=== PATIENT | male | born 2005 | race African-American/Black ===

== ENCOUNTER 2025-07-19 19:47 | Observation (INO) | payer BC, SELFPAY ==
[2025-07-19] VITALS (10 sets, daily range): BP systolic 135–171; BP diastolic 82–115; PULSE 65–97; RESP 14–18; TEMP 36.8; O2SAT 96–99
--- NOTE | 2025-07-19 19:57 | ECG_ITS ---
Test Date: 2025-07-19 20:06:43 Measurements Intervals [place] Rate: 81 P: 37 GA: 161 QRS: 14 QRSD: 84 T: 18 QT: 342 QTc: 397 Interpretive Statements SINUS RHYTHM DELAYED PRECORDIAL R/S TRANSITION BORDERLINE ECG No previous ECG available for comparison Electronically Signed On 07-20-2025 06:04:04 PRE ASSEMBLY WIRER by Quinn Bowers D.O.
[2025-07-19 20:17] LABS: Hematocrit 43.3 % (42.0-52.0); Hemoglobin 14.4 g/dL (14.0-18.0); Immature Granulocyte Percent A 0.3 % (0-0.5); Lymphocytes Absolute Auto 2.61 K/mm3 (0.9-3.2); Mean Corpuscular HGB Conc 33.3 g/dl (32-36); Mean Corpuscular Hemoglobin 30.8 pg (26-34); Mean Corpuscular Volume 92.5 fl (80-100); Nucleated Red Blood Cells Absolute Auto 0.000 K/mm3 (0.0-0.012); Nucleated Red Blood Cells Perc 0.0 % (0.0-0.2); Platelet Count Result 367 k/mm3 (150-375); Red Blood Count 4.68 M/mm3 (4.6-6.20); White Blood Count 10.3 K/mm3 (4.5-10.0)
[2025-07-19 20:40] LABS: Acetaminophen < 10 ug/mL (10-30); Salicylate < 1.0 mg/dL (2-20)
--- NOTE | 2025-07-19 20:50 | ED.OVERDOSE ---
HPI - Overdose General Chief Complaint: Overdose <Shannan Kraft MD - Last Filed: 07/20/25 00:41> Stated Complaint: LITHIUM OVERDOSE <Shannan Kraft MD - Last Filed: 07/20/25 00:41> Time Seen by Provider: 07/19/25 19:54 <Shannan Kraft MD - Last Filed: 07/20/25 00:41> Source: patient and RN notes reviewed <Shannan Kraft MD - Last Filed: 07/20/25 00:41> Mode of arrival: EMS <Shannan Kraft MD - Last Filed: 07/20/25 00:41> Limitations: no limitations <Shannan Kraft MD - Last Filed: 07/20/25 00:41> History of Present Illness HPI Narrative: Patient presents after report of an intentional overdose of [place]. States he took 33 pills of his 450mg [place] dose at approximately 7:10pm. Patient denies any suicidal ideation and states that he did not want to hurt himself , only that he took this because he was angry towards his parents and aunt. Patient denies any co ingestants. He denies taking any other medications at baseline although he said that due to his history of bipolar disorder and schizophrenia he had been receiving Invega long-acting injections although does not recall when he last had 1 but that his mother would know this information. Patient states that he did not eat, he only had milk with his lithium. Patient says that the lithium is a somewhat new prescription and that he has only been on it for a year or less. It is prescribed by Romana Veloz on the bottle ; he states he doesn't know who this is exactly because he has seen a lot of doctors, doesn't know who is primary or mental health doctors are. He has attempted overdose before, when he was 12yo and in a juvenile care home facility and on ADHD medication. He says he did it at that time because they thought I was playing. Denies previous suicide attempts though. He reports that he vomited when he got here but does not feel nauseated now. Does have some low abdominal pain. <Shannan Kraft MD - Last Filed: 07/20/25 00:41> Related Data Allergies/Adverse Reactions: Allergies Allergy/AdvReac Type Severity Reaction Status Date / Time No Known Allergies Allergy Unverified 11/27/13 20:10 <Shannan Kraft MD - Last Filed: 07/20/25 00:41> PMFSH Past Medical History Medical History: Medical History ADHD Schizophrenia Bipolar disorder <Shannan Kraft MD - Last Filed: 07/20/25 00:41> Social History Social History: Social History Substance use type: does not use Other substance usage details: denies but UDS positive for cannabinoids Living arrangements: with family <Shannan Kraft MD - Last Filed: 07/20/25 00:41> Exam Narrative: GENERAL: Well-appearing, well-nourished, and in no acute distress. HEAD: Normocephalic, atraumatic. EYES: Non injected, non icteric ENT: Nares clear, no rhinorrhea or epistaxis. Gross auditory acuity intact. NECK: Supple. No meningismus. CHEST: Speaking in full sentences. No respiratory distress. HEART: Regular rate and rhythm. . ABDOMEN: Soft, nondistended. No rigidity or guarding. Not peritoneal EXTREMITIES: Normal range of motion. SKIN: Warm, dry, no rash. NEURO: No focal deficits. Alert and oriented. Answering questions. Following commands. Normal speech without aphasia or dysarthria. PSYCH: Congruent mood and affect. Appropriate eye contact as well as speech (volume, quantity). Does not appear to be responding to internal stimuli. <Shannan Kraft MD - Last Filed: 07/20/25 00:41> Course Course Emergency Course: 22:00 -patient signed out to me Dr. Kraft at shift change pending lithium level it 0115. Service Desk Agent has been consulted. Poison Control has also been contacted. Overall plan is for a repeat lithium level at 1:15 a.m. and every 4 hours, the lithium level at 1:15 a.m. is less than 4 can admit patient. Nephrology has also been contacted and are unable to get the patient dialysis tonight if the lithium level is greater than 4 and 1:15 patient will need to be transferred. 01:45 -lithium level is 1.3. I spoke with the hospitalist on-call who has accepted the patient for admission. <Ino Padilla DO - Last Filed: 07/20/25 02:04> Vital Signs Vital signs: Vital Signs Pulse Rate 94 07/19/25 19:51 Respiratory Rate 14 07/19/25 19:51 Blood Pressure 168/108 H 07/19/25 19:51 Pulse Oximetry 98 07/19/25 19:51 Oxygen Delivery Room Air 07/19/25 19:51 Temperature 98.2 F 07/19/25 21:03 Pulse Rate 94 07/19/25 19:51 Respiratory Rate 14 07/19/25 19:51 Blood Pressure 168/108 H 07/19/25 19:51 Pulse Oximetry 98 07/19/25 19:51 Oxygen Delivery Room Air 07/19/25 19:51 <Shannan Kraft MD - Last Filed: 07/20/25 00:41> Vital Signs Pulse Rate 94 07/19/25 19:51 Respiratory Rate 14 07/19/25 19:51 Blood Pressure 168/108 H 07/19/25 19:51 Pulse Oximetry 98 07/19/25 19:51 Oxygen Delivery Room Air 07/19/25 19:51 Temperature 98.2 F 07/19/25 21:03 Pulse Rate 94 07/19/25 19:51 Respiratory Rate 14 07/19/25 19:51 Blood Pressure 168/108 H 07/19/25 19:51 Pulse Oximetry 98 07/19/25 19:51 Oxygen Delivery Room Air 07/19/25 19:51 <Ino Padilla DO - Last Filed: 07/20/25 02:04> MDM MDM Narrative Medical decision making narrative: Patient presents after reported intentional overdose of 33 tablets of 450mg [place] at 7:10pm. Denies SI; states did it out of anger towards family members. In the emergency department he is afebrile (initially not entered but 98.2) with vital signs notable for hypertension. It appears Romana Veloz MD is a psychiatrist. Acetaminophen salicylate negative. RN spoke with poison control who noted should start seeing symptoms 3-7 hours and may need hemodialysis, watch for hyperkalemia and hypercalcemia and get repeat Li level q4 hour after initial. No role for charcoal, etc. Very mild leukocytosis, barely. UA with trace leukocyte esterase but otherwise without signs of infection. Mild hyponatremia, no prior for comparison. UDS positive for cannabinoids. Initial [place] lab is not abnormal. Discussed with oil well services field supervisor Dr Sandoval who concurs with the IMU-status but in the ICU overflow space for close monitoring 1:1 / 1:2 sitting. Also recommends nephrology be notified in case patient requires dialysis and to confirm could be performed overnight. Discussed with admissions representative hospitalist Yady PICHARDO who accepts admission pending discussion with nephrology. Discussed with milk and cream grader who does note that unable to have dialysis catheter placed overnight should patient require dialysis. Recommends waiting until 1:15am [place] level. If <4, reasonable to admit and will await morning (5:15 and 9:15am ) lab draws. If repeat [place] level overnight is >4, patient will require transfer for dialysis. Advised hydrating patient so in addition to the first Liter bolus ordered, 2 additional boluses (total 3000mL) NS ordered. director call center sales overnight ED physician aware to follow up on lab and either place admit orders versus transfer patient. <Shannan Kraft MD - Last Filed: 07/20/25 00:41> Differential Diagnosis Differential Diagnosis: intentional ingestion; overdose; lithium toxicity; suicide attempt; behavioral outburst/impulsivity; psychiatic decline; malingering <Shannan Kraft MD - Last Filed: 07/20/25 00:41> Lab Data MDM Lab Attestation statement: I personally reviewed the patient's lab results. <Shannan Kraft MD - Last Filed: 07/20/25 00:41> Result diagrams: 07/19/25 20:10 07/19/25 21:13 <Shannan Kraft MD - Last Filed: 07/20/25 00:41> Labs: Lab Results 07/19/25 07/19/25 07/20/25 Range/Units 20:10 21:13 01:13 WBC 10.3 H (4.5-10.0) K/mm3 RBC 4.68 (4.6-6.20) M/mm3 Hgb 14.4 (14.0-18.0) g/dL Hct 43.3 (42.0-52.0) % MCV 92.5 (80-100) fl MCH 30.8 (26-34) pg MCHC 33.3 (32-36) g/dl RDW 13.9 (11.5-14.5) % Plt Count 367 (150-375) k/mm3 MPV 9.3 (7.4-10.4) fl Immature Gran % (Auto) 0.3 (0-0.5) % Neut % (Auto) 65.7 (45.5-73.1) % Lymph % (Auto) 25.3 (18.3-44.2) % [place] % (Auto) 6.5 (2.6-8.5) % Eos % (Auto) 1.8 (0-4.4) % Baso % (Auto) 0.4 (0.2-1.2) % Lymph # (Auto) 2.61 (0.9-3.2) K/mm3 [place] # (Auto) 0.7 H (0.1-0.6) K/mm3 Eos # (Auto) 0.2 (0-0.3) K/mm3 Baso # (Auto) 0.0 (0.0-0.1) K/mm3 Abs Immat Gran (auto) 0.03 (0.00-0.031) K/mm3 Absolute Neuts (auto) 6.8 H (1.3-6.7) K/mm3 Absolute Nucleated RBC 0.000 (0.0-0.012) K/mm3 Nucleated RBC % 0.0 (0.0-0.2) % PT 15.3 H (11.1-14.7) Seconds INR 1.2 APTT 33.4 (22.3-36.8) Seconds Sodium 135 L (137-145) mmol/L Potassium 3.8 (3.4-5.0) mmol/L Chloride 104 (98-107) mmol/L Carbon Dioxide 25 (22-30) mmol/L Anion Gap 6 (4-12) mmol/L BUN 9 (9-20) mg/dL Creatinine 0.81 (0.7-1.3) mg/dL Estim Creat Clear Calc 176 ml/min Estimated GFR > 60 (59 - ) Glucose 84 (65-110) mg/dL Calcium 9.6 (8.4-10.2) mg/dL Total Bilirubin 0.4 (0.2-1.3) mg/dL AST 33 (17-59) U/L ALT 15 (6-50) U/L Alkaline Phosphatase 87 (38-126) U/L Total Protein 7.9 (6.3-8.2) g/dL Albumin 4.6 (3.5-5.1) g/dL TSH 2.840 (0.465-4.680) uIU/mL Urine Color Yellow (Yellow) Urine Appearance Clear (Clear) Urine pH 8.0 (5.0-9.0) Ur Specific [place] 1.012 (1.001-1.035) Urine Protein Negative (Negative) mg/dL Urine Glucose (UA) Negative (Negative) mg/dL Urine Ketones Negative (Negative) mg/dL Ur Blood (Man) Negative (Negative) Urine Nitrate Negative (Negative) Urine Bilirubin Negative (Negative) Urine Urobilinogen 1.0 (<2.0) mg/dL Leukocyte Esterase Rfl Trace H (Negative) ALEXANDER/UL Urine RBC 0-2 (0-2) /hpf Urine WBC 0-5 (0-3) /hpf Ur Squamous Epith Cells None seen (Few) /hpf Urine Bacteria None seen /hpf Urine Casts 0-2 Salicylates < 1.0 L (2-20) mg/dL Urine Opiates Screen Negative (Negative) Urine Methadone Screen Negative (Negative) Acetaminophen < 10 L (10-30) ug/mL Ur Barbiturates Screen Negative (Negative) Ur Phencyclidine Scrn Negative (Negative) Ur Amphetamine Screen Negative (Negative) U Benzodiazepines Scrn Negative (Negative) [place] Cancelled 0.7 1.3 H* Urine Cocaine Screen Negative (Negative) U Cannabinoids Screen Positive A (Negative) Ethyl Alcohol < 10 (<10) mg/dL <Shannan Kraft MD - Last Filed: 07/20/25 00:41> Lab Results 07/19/25 07/19/25 07/20/25 Range/Units 20:10 21:13 01:13 WBC 10.3 H (4.5-10.0) K/mm3 RBC 4.68 (4.6-6.20) M/mm3 Hgb 14.4 (14.0-18.0) g/dL Hct 43.3 (42.0-52.0) % MCV 92.5 (80-100) fl MCH 30.8 (26-34) pg MCHC 33.3 (32-36) g/dl RDW 13.9 (11.5-14.5) % Plt Count 367 (150-375) k/mm3 MPV 9.3 (7.4-10.4) fl Immature Gran % (Auto) 0.3 (0-0.5) % Neut % (Auto) 65.7 (45.5-73.1) % Lymph % (Auto) 25.3 (18.3-44.2) % [place] % (Auto) 6.5 (2.6-8.5) % Eos % (Auto) 1.8 (0-4.4) % Baso % (Auto) 0.4 (0.2-1.2) % Lymph # (Auto) 2.61 (0.9-3.2) K/mm3 [place] # (Auto) 0.7 H (0.1-0.6) K/mm3 Eos # (Auto) 0.2 (0-0.3) K/mm3 Baso # (Auto) 0.0 (0.0-0.1) K/mm3 Abs Immat Gran (auto) 0.03 (0.00-0.031) K/mm3 Absolute Neuts (auto) 6.8 H (1.3-6.7) K/mm3 Absolute Nucleated RBC 0.000 (0.0-0.012) K/mm3 Nucleated RBC % 0.0 (0.0-0.2) % PT 15.3 H (11.1-14.7) Seconds INR 1.2 APTT 33.4 (22.3-36.8) Seconds Sodium 135 L (137-145) mmol/L Potassium 3.8 (3.4-5.0) mmol/L Chloride 104 (98-107) mmol/L Carbon Dioxide 25 (22-30) mmol/L Anion Gap 6 (4-12) mmol/L BUN 9 (9-20) mg/dL Creatinine 0.81 (0.7-1.3) mg/dL Estim Creat Clear Calc 176 ml/min Estimated GFR > 60 (59 - ) Glucose 84 (65-110) mg/dL Calcium 9.6 (8.4-10.2) mg/dL Total Bilirubin 0.4 (0.2-1.3) mg/dL AST 33 (17-59) U/L ALT 15 (6-50) U/L Alkaline Phosphatase 87 (38-126) U/L Total Protein 7.9 (6.3-8.2) g/dL Albumin 4.6 (3.5-5.1) g/dL TSH 2.840 (0.465-4.680) uIU/mL Urine Color Yellow (Yellow) Urine Appearance Clear (Clear) Urine pH 8.0 (5.0-9.0) Ur Specific [place] 1.012 (1.001-1.035) Urine Protein Negative (Negative) mg/dL Urine Glucose (UA) Negative (Negative) mg/dL Urine Ketones Negative (Negative) mg/dL Ur Blood (Man) Negative (Negative) Urine Nitrate Negative (Negative) Urine Bilirubin Negative (Negative) Urine Urobilinogen 1.0 (<2.0) mg/dL Leukocyte Esterase Rfl Trace H (Negative) [place]/UL Urine RBC 0-2 (0-2) /hpf Urine WBC 0-5 (0-3) /hpf Ur Squamous Epith Cells None seen (Few) /hpf Urine Bacteria None seen /hpf Urine Casts 0-2 Salicylates < 1.0 L (2-20) mg/dL Urine Opiates Screen Negative (Negative) Urine Methadone Screen Negative (Negative) Acetaminophen < 10 L (10-30) ug/mL Ur Barbiturates Screen Negative (Negative) Ur Phencyclidine Scrn Negative (Negative) Ur Amphetamine Screen Negative (Negative) U Benzodiazepines Scrn Negative (Negative) [place] Cancelled 0.7 1.3 H* Urine Cocaine Screen Negative (Negative) U Cannabinoids Screen Positive A (Negative) Ethyl Alcohol < 10 (<10) mg/dL <Ino Padilla DO - Last Filed: 07/20/25 02:04> ECG Data EKG #1: Attestation: I personally reviewed and interpreted this ECG as follows: <Shannan Kraft MD - Last Filed: 07/20/25 00:41> ECG completion date: 07/19/25 <Shannan Kraft MD - Last Filed: 07/20/25 00:41> ECG completion time: 20:06 <Shannan Kraft MD - Last Filed: 07/20/25 00:41> Interpretation: Normal sinus rhythm at a rate of 81 beats per minute. NC interval 161. QRS 84. QT/QTC 342/379. Good R-wave progression across the precordial leads. T-wave inversion in 3 but upright in contiguous inferior leads. No other T-wave inversions. <Shannan Kraft MD - Last Filed: 07/20/25 00:41> Discharge Plan Discharge Clinical Impression: Hyponatremia, Marijuana use Intentional lithium overdose Qualifiers: Encounter type: initial encounter Qualified Code(s): T56.892A - Toxic effect of other metals, intentional self-harm, initial encounter <Shannan Kraft MD - Last Filed: 07/20/25 00:41> Patient Disposition: Still a Patient <Shannan Kraft MD - Last Filed: 07/20/25 00:41> Condition: Serious <Shannan Kraft MD - Last Filed: 07/20/25 00:41> Patient Language: Indonesian <Shannan Kraft MD - Last Filed: 07/20/25 00:41> Follow-up/Referrals: LUCIEN,KADIE Braden M.D. [Non-Staff] <Shannan Kraft MD - Last Filed: 07/20/25 00:41> Time of Disposition: 02:02 <Shannan Kraft MD - Last Filed: 07/20/25 00:41> 02:02 <Ino Padilla DO - Last Filed: 07/20/25 02:04>
--- NOTE | 2025-07-19 20:52 | PC.NURSE ---
Addendum entered by Vera Paulino RN 07/19/25 21:50: Per poison control GI symptoms might present early. Recommended to repeat lithium levels Q4-6hrs to establish trend and peak time. Per JESICA Barnes pt will most likely need hemodialysis. Original Note: Spoke to Molly Valdez from poison control
[2025-07-19 21:25] LABS: Add Urine Microscopic? YES; Appearance Urine Clear (Clear); Glucose Urine UA Negative (Negative); Leukocyte Esterase Ur Trace LEU/UL (Negative); Nitrate Urine Negative (Negative); Non Pathogenic Casts 0-2; Specific Grav Ur 1.012 (1.001-1.035)
[2025-07-19 21:30] LABS: Lithium 0.7 mmol/L (0.6-1.2)
[2025-07-19 21:35] LABS: Alanine Aminotransferase 15 U/L (6-50); Albumin Level 4.6 g/dL (3.5-5.1); Alkaline Phosphatase 87 U/L (38-126); Anion Gap 6 mmol/L (4-12); Aspartate Amino Transferase 33 U/L (17-59); Bilirubin,Total 0.4 mg/dL (0.2-1.3); Blood Urea Nitrogen 9 mg/dL (9-20); Calcium 9.6 mg/dL (8.4-10.2); Carbon Dioxide 25 mmol/L (22-30); Chloride 104 mmol/L (98-107); Estimated CRCL calculation 176 ml/min; Estimated Glomerular Filt Rate > 60; Glucose 84 mg/dL (65-110); Potassium 3.8 mmol/L (3.4-5.0); Sodium 135 mmol/L (137-145); Total Protein 7.9 g/dL (6.3-8.2)
[2025-07-19 21:39] LABS: INR 1.2; Prothrombin Time 15.3 Seconds (11.1-14.7)
[2025-07-19 21:40] LABS: Partial Thromboplastin Time 33.4 Seconds (22.3-36.8)
[2025-07-19 21:51] LABS: Cannabinoid Screen Urine Positive (Negative)
[2025-07-19 22:05] LABS: Thyroid Stimulating Hormone 2.840 uIU/mL (0.465-4.680)
[2025-07-19] MEDS: SODIUM CHLORIDE 0.9% IV 1,000 ML 999 ML IV CONT ×3 (22:21→23:27)
[2025-07-20 00:16] VITALS: BP 146/77
[2025-07-20 01:33] LABS: Lithium 1.3 mmol/L (0.6-1.2)
[2025-07-20 02:09] VITALS: BP 136/83; PULSE 68; RESP 13; O2SAT 99
--- NOTE | 2025-07-20 04:32 | WPCEDHO ---
ED Hand Off Checklist All vitals saved:yes IV Site documented:yes All med administrations documented:yes Triage Note Triage Note Pt ANTONIO for intentional overdose 07/19/25 20:54 on estimated 30pills of 450mg lithium at 1910. Per pt was having an argument with his aunt, and wanted to end his life. HX: schizophrenia; depression Allergies No Known Allergies Allergy (Unverified 11/27/13 20:10) Administered/Completed Medications Discontinued Medications Sodium Chloride (Normal Saline Iv) 1,000 mls @ 999 mls/hr IV CONT .Q1H1M STA Stop: 07/19/25 23:12 Last Infusion: 07/20/25 00:11 Dose: Infused Documented By: Admin: 07/19/25 22:21 Dose: 999 mls/hr Documented By: GREY Sodium Chloride (Normal Saline Iv) 1,000 mls @ 999 mls/hr IV CONT .Q1H1M STA Stop: 07/19/25 23:54 Last Infusion: 07/20/25 02:08 Dose: Infused Documented By: Admin: 07/19/25 23:27 Dose: 999 mls/hr Documented By: GREY Sodium Chloride (Normal Saline Iv) 1,000 mls @ 999 mls/hr IV CONT .Q1H1M STA Stop: 07/19/25 23:55 Last Infusion: 07/20/25 02:08 Dose: Infused Documented By: Admin: 07/19/25 23:27 Dose: 999 mls/hr Documented By: GREY Notes 07/19/25 20:52 Nurse Note by Vera Paulino Addendum entered by Vera Paulino RN 07/19/25 21:50: Per poison control GI symptoms might present early. Recommended to repeat lithium levels Q4-6hrs to establish trend and peak time. Per JESICA Barnes pt will most likely need hemodialysis. Original Note: Spoke to Molly Valdez from poison control Initialized on 07/19/25 20:52 - END OF NOTE Interventions/Assessments IV / Saline Lock, Insert Start: 07/19/25 19:47 Freq: Status: Active Protocol: Document 07/19/25 22:21 EZG (Rec: 07/19/25 22:21 [id number] [id number]) IV Assessment Peripheral Access Right Antecubital IV Catheter Access Initiated IV Insertion Date 07/19/25 IV Insertion Time 21:30 Catheter Gauge 18 IV Site Assessment WNL IV Care and WNL Maintenance PA: Cardiovascular Assessment Start: 07/19/25 19:47 Freq: Status: Active Protocol: Document 07/19/25 20:47 EZG (Rec: 07/19/25 20:48 EZG [id number]) Cardiovascular Assessment Cardiovascular Nausea,Vomiting Symptoms Heart Sounds Normal Skin Description Clammy Jugular Vein None Distention PA: Respiratory Assessment Start: 07/19/25 19:47 Freq: Status: Active Protocol: Document 07/19/25 20:47 EZG (Rec: 07/19/25 20:48 EZG [id number]) Respiratory Assessment Symptoms None Pattern Regular Adult Capillary Normal/Less than 2 Seconds Refill Effort Normal Depth Normal Chest Expansion Symmetrical Last Vital Signs Temperature 98.2 F 07/19/25 21:03 Pulse Rate 68 07/20/25 02:09 Respiratory Rate 13 07/20/25 02:09 Pulse Oximetry 99 07/20/25 02:09 Blood Pressure 136/83 07/20/25 02:09 Blood Pressure Mean 100 07/20/25 02:09 Blood Pressure Position Sitting 07/19/25 19:51 Oxygen Delivery Room Air 07/19/25 19:51 Weight 124 kg 07/19/25 19:51 Last Result - Abnormals Only WBC 10.3 K/mm3 (4.5-10.0) H 07/19/25 20:10 [place] # (Auto) 0.7 K/mm3 (0.1-0.6) H 07/19/25 20:10 Absolute Neuts (auto) 6.8 K/mm3 (1.3-6.7) H 07/19/25 20:10 PT 15.3 Seconds (11.1-14.7) H 07/19/25 21:13 Sodium 135 mmol/L (137-145) L 07/19/25 21:13 Leukocyte Esterase Rfl Trace ALEXANDER/UL (Negative) H 07/19/25 21:13 Salicylates < 1.0 mg/dL (2-20) L 07/19/25 20:10 Acetaminophen < 10 ug/mL (10-30) L 07/19/25 20:10 [place] 1.3 mmol/L (0.6-1.2) H* 07/20/25 01:13 U Cannabinoids Screen Positive (Negative) A 07/19/25 21:13 Most Recent Suicide Severity Rating Suicide Severity Rating NO RISK INDICATED 07/20/25 04:02
--- NOTE | 2025-07-20 05:04 | P.HP_ITS ---
H&P: HPI History of Present Illness Date/Time: 07/20/25 05:04 Chief Complaint: Overdose Narrative: This is a 20-year-old male patient to has a history of bipolar disorder and schizophrenia. The patient has been receiving Invega long-acting injections with does not recall when he had his last 1. The patient came to the emergency room with an intentional overdose of lithium. The patient took 33 pills of 450 mg a lithium at 7:10 a.m. last night. The patient stated that he was upset yesterday and took all of those medications so that he could rest. The patient stated that he had been on lithium for approximately 1 year. The patient has attempted overdose before when he was 12 years old. He was in a due in out skilled nursing facility at the time. His white counts noted to be 10.3. Sodium level 135. Anion gap 3. BUN 6 creatinine 0.79. Estimated GFR greater than 60. Initial lithium level was 0.7 and then 1.3 and 3.0. Patient's drug screen was positive for cannabinoids. Poison Control has been notified. Nephrology has been consulted for possible dialysis. The patient was ordered IV fluids. Poison Control has been notified. Initially the patient had wanted to sign out AMA. After long discussion about the side effects of the medication the patient decided to stay. The patient is being admitted to observation status on the date of service of 07/20/2025. Review of Systems Constitutional: Constitutional: Reports as per HPI and Reports no additional constitutional complaints Eyes: Eyes: Reports as per HPI and Reports no additional eye complaints ENT: Reports no additional ear, nose, mouth, and throat complaints and Reports Normal hearing present Cardiovascular: Cardiovascular: Reports no additional cardiovascular complaints Respiratory: Respiratory: Reports as per HPI and Reports no additional respiratory complaints Gastrointestinal: Gastrointestinal: Reports as per HPI and Reports no additional gastrointestinal complaints Musculoskeletal: Musculoskeletal: Reports no additional musculoskeletal complaints Integumentary/Breasts: Skin/Breast: Reports system reviewed and no additional complaints, except as docu Neurologic: Reports no additional neurologic complaints and Reports Normal hearing present Psychiatric: Psychiatric: Reports no additional psychiatric complaints and Reports as per HPI Hematologic/Lymphatic: Hematologic/Lymphatic: Reports no additional hematologic/lymphatic complaints Allergic/Immunologic: Allergic/Immunologic: Reports no additional allergic/immunologic complaints PMFSH Past Medical History Medical History ADHD Schizophrenia Bipolar disorder Family History Family History (Updated 07/20/25 @ 05:05 by Yady Mason APRN) Other Hypertension Social History Social History (Updated 07/20/25 @ 06:50 by Yady Mason APRN) Social History: lives with sister and brother in law. The patient does use marijuana. He has a smoke cigarettes. Code status full code Smoking packs per day: 2 Smoking cigarettes per day: 40.0 Years smoked: 11 Smoking pack-years: 22.00 Smoking status: Current every day smoker Tobacco type: cigarettes Alcohol intake: never Substance use: current Substance use type: does not use Other substance usage details: denies but UDS positive for cannabinoids Lack of Transportation: No Lack of Food: Never True Current Housing: I Have Housing Concerned About Future Housing: No Difficulty Paying Gas/Electric Bills: No Difficulty Paying for Meds: No Currently Unemployed: No Education: High School Diploma/GED Difficulty w/ Childcare or Family Care: No Living arrangements: with family Spiritual care concerns: No Meds Home Medications and Allergies Home Medications ?Medication ?Instructions ?Recorded ?Confirmed ?Type lithium carbonate 450 mg 450 mg PO DAILY 07/20/2510/13 History tablet,extended release Allergies Allergy/AdvReac Type Severity Reaction Status Date / Time No Known Allergies Allergy Verified 07/20/25 05:37 Vital Signs Vital Signs - 24 hr 07/19/25 19:51 07/19/25 19:51 07/19/25 20:43 Temperature Pulse Rate 94 97 Respiratory Rate 14 14 15 Blood Pressure 168/108 H 167/115 H Pulse Oximetry 98 96 Oxygen Delivery Room Air 07/19/25 20:46 07/19/25 21:03 07/19/25 21:12 Temperature 98.2 F Pulse Rate 73 66 Respiratory Rate 18 18 Blood Pressure 171/110 H Pulse Oximetry 99 99 Oxygen Delivery 07/19/25 22:21 07/19/25 22:22 07/19/25 22:46 Temperature Pulse Rate 66 65 Respiratory Rate 15 18 Blood Pressure 154/98 H 152/87 H 135/91 H Pulse Oximetry 97 99 96 Oxygen Delivery 07/19/25 23:01 07/19/25 23:16 07/20/25 00:16 Temperature Pulse Rate Respiratory Rate Blood Pressure 148/86 H 141/82 H 146/77 H Pulse Oximetry 97 Oxygen Delivery 07/20/25 02:09 Temperature Pulse Rate 68 Respiratory Rate 13 Blood Pressure 136/83 Pulse Oximetry 99 Oxygen Delivery Exam Const: General: cooperative, healthy appearing, comfortable, no acute distress, well developed, awake, Physically active, average body habitus and well nourished Nutritional Appearance: average body habitus and well n ourished Orientation/consciousness: oriented to person, oriented to place, oriented to time and patient oriented x3 Limitations: no limitations HENMT: Head: normal to inspection, No palpable skull fracture present, normocephalic, atraumatic and abrasion Ears: hearing grossly normal bilaterally and external ears normal Eyes: General: appearance normal, both eyes and all related structures Alignment and Position: alignment normal Periorbital: periorbital findings normal EOM: EOMs intact bilaterally Neck: Neck: normal visual inspection, full ROM and no lymphadenopathy Chest: Chest palpation & inspection: normal inspection of the chest Resp: Effort & Inspection: normal respiratory effort Auscultation: clear to auscultation bilaterally Cardio: Palpation: normal PMI Rate: regular rate Rhythm: regular rhythm Heart sounds: S1 normal heart sound present and S2 normal heart sound present Peripheral pulses: Peripheral pulses 2+ throughout GI: Inspection: normal to inspection Percussion: Yes normal to percussion Auscultation: normal bowel sounds Rectal Exam: deferred : General: Yes no CVA tenderness Skin: General skin exam: normal color Lesions: no lesions Rashes: no rashes Trauma: no lacerations or abrasions Wounds: no wounds Hair: normal Nails: normal Neuro: General: oriented to person, oriented to place, oriented to time and patient oriented x3 Cranial nerves: Yes Equal, round and reactive pupils present and Yes Normal hearing present Cognition (Neuro): normal cognition Speech: normal speech Gait exam (Neuro): Normal gait present Motor exam (neuro): 5/5 motor strength present throughout Sensory Exam: normal sensation Extrem: General: normal to inspection Right upper extremity: normal to inspection and shoulder/upper arm Left upper extremity: normal to inspection and shoulder/upper arm Right lower extremity: normal to inspection Left lower extremity: normal to inspection Psych: Appearance: grossly normal Mental Status: mental status grossly normal Speech and movement: Normal speech and movement present Affect: normal affect Attitude: cooperative Thought process: Normal thought process present Thought content: Yes Normal thought content present Insight: Fair insight present (Psych) and Limited insight present (Psych) Judgement: Limited judgement present (Psych) Results Labs Labs: Short CBC 07/19/25 Range/Units 20:10 WBC 10.3 H (4.5-10.0) K/mm3 Hgb 14.4 (14.0-18.0) g/dL Hct 43.3 (42.0-52.0) % Plt Count 367 (150-375) k/mm3 BMP 07/19/25 21:13 Sodium 135 L Potassium 3.8 Chloride 104 Carbon Dioxide 25 BUN 9 Creatinine 0.81 Glucose 84 Calcium 9.6 Liver Function 07/19/25 Range/Units 21:13 Total Bilirubin 0.4 (0.2-1.3) mg/dL AST 33 (17-59) U/L ALT 15 (6-50) U/L Alkaline Phosphatase 87 (38-126) U/L Albumin 4.6 (3.5-5.1) g/dL Urine 07/19/25 Range/Units 21:13 Urine Color Yellow (Yellow) Urine Appearance Clear (Clear) Urine pH 8.0 (5.0-9.0) Ur Specific [place] 1.012 (1.001-1.035) Urine Protein Negative (Negative) mg/dL Urine Glucose (UA) Negative (Negative) mg/dL ECG Interpretation: est Date: 2025-07-19 20:06:43 Measurements Intervals [place] Rate: 81 P: 37 ND: 161 QRS: 14 QRSD: 84 T: 18 QT: 342 QTc: 397 Interpretive Statements SINUS RHYTHM DELAYED PRECORDIAL R/S TRANSITION BORDERLINE ECG No previous ECG available for comparison Electronically Signed On 07-20-2025 06:04:04 [employer] by Quinn Bowers Critical Care Time Critical Care Time Initial evaluation, discuss w/ involved parties, attempting to gather old records: 20 minutes Documenting medical record: 15 minutes Review of results (EKG's, labs, imaging): 15 minutes Total Critical Care Time: 50 Quality VTE Prophylaxis VTE prophylaxis: mechanical ordered Assessment and Plan Assessment and plan (1) Intentional lithium overdose: Qualifiers: Encounter type: initial encounter Qualified Code(s): T56.892A - Toxic effect of other metals, intentional self-harm, initial encounter Code(s): T56.892A - Toxic effect of other metals, intentional self-harm, initial encoun ter Status: Acute Assessment and Plan: -the film or tape librarian has been consulted and agreed to accept the patient in ICU. -monitor renal function closely. At this time he has normal renal function. -nephrology has been consulted. Poison Control has been notified as well. -his lithium levels were 0.7, 1.3, 3.0. Repeat lithium level at 9:30 a.m.. -the patient has had a previous suicide attempt when he was a teenager. -patient stated that he has a court date tomorrow. He was wanting to sign out AMA. I did speak with him about the consequences of the lithium overdose. Explained that it was imperative to monitor lithium levels and renal function. The patient then allowed IV fluids and is willing to stay. (2) Hyponatremia: Code(s): E87.1 - Hypo-osmolality and hyponatremia Status: Acute Assessment and Plan: -continue to monitor electrolytes closely. -patient's sodium level is 135.
--- NOTE | 2025-07-20 05:31 | ADMGEN ---
This patient, Tia Vazquez, was admitted to Intensive Care Unit-4. Patient/family oriented to hospital policies and general routines including ID bracelet, bed and alarms, visiting hours, pain management, procedures, bathroom and other care routines, personal items, smoking policy, room service/diet, and visiting hours. Information on how to activate the Rapid Response Team has been discussed. Patient/Family are encouraged to report perceived risks to care and to ask questions if they do not understand what they are told or what they should do.
[2025-07-20 05:48] LABS: MRSA (PCR) NOT DETECTED (NOT DETECTE)
[2025-07-20 06:00] VITALS: PULSE 68
[2025-07-20 06:10] LABS: Hematocrit 43.4 % (42.0-52.0); Hemoglobin 14.4 g/dL (14.0-18.0); Immature Granulocyte Percent A 0.3 % (0-0.5); Lymphocytes Absolute Auto 1.49 K/mm3 (0.9-3.2); Mean Corpuscular HGB Conc 33.2 g/dl (32-36); Mean Corpuscular Hemoglobin 31.1 pg (26-34); Mean Corpuscular Volume 93.7 fl (80-100); Nucleated Red Blood Cells Absolute Auto 0.000 K/mm3 (0.0-0.012); Nucleated Red Blood Cells Perc 0.0 % (0.0-0.2); Platelet Count Result 312 k/mm3 (150-375); Red Blood Count 4.63 M/mm3 (4.6-6.20); White Blood Count 10.5 K/mm3 (4.5-10.0)
[2025-07-20 06:27] LABS: Alanine Aminotransferase 14 U/L (6-50); Albumin Level 4.5 g/dL (3.5-5.1); Alkaline Phosphatase 84 U/L (38-126); Anion Gap 3 mmol/L (4-12); Aspartate Amino Transferase 33 U/L (17-59); Bilirubin,Total 0.6 mg/dL (0.2-1.3); Blood Urea Nitrogen 6 mg/dL (9-20); Calcium 9.3 mg/dL (8.4-10.2); Carbon Dioxide 25 mmol/L (22-30); Chloride 107 mmol/L (98-107); Estimated CRCL calculation 180 ml/min; Estimated Glomerular Filt Rate > 60; Glucose 75 mg/dL (65-110); Potassium 4.0 mmol/L (3.4-5.0); Sodium 135 mmol/L (137-145); Total Protein 7.8 g/dL (6.3-8.2)
[2025-07-20] MEDS: SODIUM CHLORIDE 0.9% IV 1,000 ML 100 ML IV CONT (06:45)
[2025-07-20 06:58] LABS: Hepatitis B Surface Antigen Negative (Negative)
[2025-07-20 08:00] VITALS: BP 147/83; PULSE 67; RESP 16; TEMP 36.8; O2SAT 100
[2025-07-20 08:06] LABS: Lithium 1.1 mmol/L (0.6-1.2)
[2025-07-20 10:00] VITALS: PULSE 73
--- NOTE | 2025-07-20 11:48 | PC.NURSE ---
Attempted to speak with patient to de-escalate situation. When called, patient was stating that he was going to leave and that nothing or nobody was going to stop him. Security already called to bedside. Patient refuses to return to room and states he is leaving. [place] police department called and notified of situation. Patient walked out against medical advice with security and got on elevator.
--- NOTE | 2025-07-20 11:54 | P.PNIM_ITS ---
Assessment and Plan Assessment and Plan (1) Intentional lithium overdose: Qualifiers: Encounter type: initial encounter Qualified Code(s): T56.892A - Toxic effect of other metals, intentional self-harm, initial encounter Code(s): T56.892A - Toxic effect of other metals, intentional self-harm, initial encounter Status: Acute Assessment and Plan: -patient is a IMU patient in the ICU because of the overdose -patient took lithium 450 mg x 33 pills -poison control was notified -nephrology was consulted in the ER, recommended IV fluid boluses -lithium levels 0.7, 1.3, 1.1 and 0.8. -reason Control has cleared the patient -the patient has had a previous suicide attempt when he was a teenager. -patient stated that he has a court date tomorrow. He was wanting to sign out AMA. The nurse practitioner overnight did talk with his him about the consequences of the lithium overdose. Explained that it was imperative to monitor lithium levels and renal function. The patient then allowed IV fluids and is willing to stay. -continue maintenance IV fluids -on serosal on this morning, patient enter unknown want to leave AMA, and walked out of the ICU accompanied by security (2) Hyponatremia: Code(s): E87.1 - Hypo-osmolality and hyponatremia Status: Acute Assessment and Plan: -continue to monitor electrolytes closely. -patient's sodium level is 135. Plan Patient walked out of the ICU accompanied by security. Subjective Date/time seen: 07/20/25 11:54 Interval history: Reason for admission: [place] overdose 07/20/2025: Patient being seen for hospitalist team Patient seen and examined in the ICU as a hospitalist patient. Is common comfortable in bed, no issues. Does not feel like eating anything. He wants to drink some fluids. Denies any pain, difficulty breathing. Unable to tell me if he is suicidal or homicidal. [place] levels have normalized Review of Systems Review of Systems: All systems reviewed & are unremarkable except as noted in HPI and below Constitutional: Constitutional: Reports as per HPI and Reports no additional constitutional complaints Eyes: Eyes: Reports as per HPI and Reports no additional eye complaints ENT: Reports system reviewed and no additional complaints, except as documented and Reports Normal hearing present Cardiovascular: Cardiovascular: Reports no additional cardiovascular complaints Respiratory: Respiratory: Reports as per HPI and Reports no additional respiratory complaints Gastrointestinal: Gastrointestinal: Reports as per HPI and Reports no additional gastrointestinal complaints Musculoskeletal: Musculoskeletal: Reports no additional musculoskeletal complaints Integumentary/Breasts: Skin/Breast: Reports system reviewed and no additional complaints, except as docu Neurologic: Reports system reviewed and no additional complaints, except as documented and Reports Normal hearing present Psychiatric: Psychiatric: Reports no additional psychiatric complaints and Reports as per HPI Hematologic/Lymphatic: Hematologic/Lymphatic: Reports no additional hematologic/lymphatic complaints Allergic/Immunologic: Allergic/Immunologic: Reports no additional allergic/immunologic complaints Exam Const: General: cooperative, healthy appearing, comfortable, no acute distress, well developed, awake, Physically active, average body habitus and well nourished Nutritional Appearance: average body habitus and well nourished Orientation/consciousness: oriented to person, oriented to place, oriented to time and patient oriented x3 Limitations: no limitations HENMT: Head: normal to inspection, No palpable skull fracture present, normocephalic, atraumatic and abrasion Ears: hearing grossly normal bilaterally and external ears normal Eyes: General: appearance normal, both eyes and all related structures Alignment and Position: alignment normal Periorbital: periorbital findings normal Pupils: Equal, round and reactive pupils present EOM: EOMs intact bilaterally Neck: Neck: normal visual inspection, full ROM and no lymphadenopathy Chest: Chest palpation & inspection: normal inspection of the chest Resp: Effort & Inspection: normal respiratory effort Auscultation: clear to auscultation bilaterally Cardio: Palpation: normal PMI Rate: regular rate Rhythm: regular rhythm Heart sounds: S1 normal heart sound present and S2 normal heart sound present Peripheral pulses: Peripheral pulses 2+ throughout GI: Inspection: normal to inspection Auscultation: normal bowel sounds Rectal Exam: deferred : General: Yes no CVA tenderness Back/Spine/Pelvis: Back: no CVA tenderness Skin: General skin exam: normal color Lesions: no lesions Rashes: no rashes Trauma: no lacerations or abrasions Wounds: no wounds Hair: normal Nails: normal Neuro: General: oriented to person, oriented to place, oriented to time and patient oriented x3 Cranial nerves: Yes Equal, round and reactive pupils present and Yes Normal hearing present Cognition (Neuro): normal cognition Speech: normal speech Gait exam (Neuro): Normal gait present Motor exam (neuro): 5/5 motor strength present throughout Sensory Exam: normal sensation Extrem: General: normal to inspection Right upper extremity: normal to inspection and shoulder/upper arm Left upper extremity: normal to inspection and shoulder/upper arm Right lower extremity: normal to inspection Left lower extremity: normal to inspection Psych: Appearance: grossly normal Mental Status: mental status grossly normal Speech and movement: Normal speech and movement present Affect: normal affect Attitude: cooperative Thought process: Normal thought process present Insight: Good insight present (Psych) Judgement: Good judgement present (Psych) Objective Data Vital Signs Vital Signs: Vital Signs - 24 hr 07/19/25 19:51 07/19/25 19:51 07/19/25 20:43 Temperature Pulse Rate 94 97 Respiratory Rate 14 14 15 Blood Pressure 168/108 H 167/115 H Pulse Oximetry 98 96 Oxygen Delivery Room Air 07/19/25 20:46 07/19/25 21:03 07/19/25 21:12 Temperature 98.2 F Pulse Rate 73 66 Respiratory Rate 18 18 Blood Pressure 171/110 H Pulse Oximetry 99 99 Oxygen Delivery 07/19/25 22:21 07/19/25 22:22 07/19/25 22:46 Temperature Pulse Rate 66 65 Respiratory Rate 15 18 Blood Pressure 154/98 H 152/87 H 135/91 H Pulse Oximetry 97 99 96 Oxygen Delivery 07/19/25 23:01 07/19/25 23:16 07/20/25 00:16 Temperature Pulse Rate Respiratory Rate Blood Pressure 148/86 H 141/82 H 146/77 H Pulse Oximetry 97 Oxygen Delivery 07/20/25 02:09 07/20/25 06:00 Temperature Pulse Rate 68 68 Respiratory Rate 13 Blood Pressure 136/83 Pulse Oximetry 99 Oxygen Delivery Intake/Output Intake/Output: Intake & Output 07/17/25 07/18/25 07/19/25 07/20/25 23:59 23:59 23:59 23:59 Intake Total 3033.3 Balance 3033.3 Meds/Results Medications: Active Medications Generic Name Dose Route Start Last Admin Trade Name Freq PRN Reason Stop Dose Admin Sodium Chloride 1,000 mls @ 150 mls/hr 07/20/25 05:20 07/20/25 07:05 Normal Saline Iv IV CONT 150 mls/hr .[id number] SARAH Infusion Labs Labs: Laboratory Results - last 24 hr 07/19/25 07/19/25 07/20/25 20:10 21:13 01:13 WBC 10.3 H RBC 4.68 Hgb 14.4 Hct 43.3 MCV 92.5 MCH 30.8 MCHC 33.3 RDW 13.9 Plt Count 367 MPV 9.3 Immature Gran % (Auto) 0.3 Neut % (Auto) 65.7 Lymph % (Auto) 25.3 [place] % (Auto) 6.5 Eos % (Auto) 1.8 Baso % (Auto) 0.4 Lymph # (Auto) 2.61 [place] # (Auto) 0.7 H Eos # (Auto) 0.2 Baso # (Auto) 0.0 Abs Immat Gran (auto) 0.03 Absolute Neuts (auto) 6.8 H Absolute Nucleated RBC 0.000 Nucleated RBC % 0.0 PT 15.3 H INR 1.2 APTT 33.4 Sodium 135 L Potassium 3.8 Chloride 104 Carbon Dioxide 25 Anion Gap 6 BUN 9 Creatinine 0.81 Estim Creat Clear Calc 176 Estimated GFR > 60 Glucose 84 Calcium 9.6 Total Bilirubin 0.4 AST 33 ALT 15 Alkaline Phosphatase 87 Total Protein 7.9 Albumin 4.6 TSH 2.840 Urine Color Yellow Urine Appearance Clear Urine pH 8.0 Ur Specific [place] 1.012 Urine Protein Negative Urine Glucose (UA) Negative Urine Ketones Negative Ur Blood (Man) Negative Urine Nitrate Negative Urine Bilirubin Negative Urine Urobilinogen 1.0 Leukocyte Esterase Rfl Trace H Urine RBC 0-2 Urine WBC 0-5 Ur Squamous Epith Cells None seen Urine Bacteria None seen Urine Casts 0-2 Ur Random Sodium Nasal MRSA (PCR) Salicylates < 1.0 L Urine Opiates Screen Negative Urine Methadone Screen Negative Acetaminophen < 10 L Ur Barbiturates Screen Negative Ur Phencyclidine Scrn Negative Ur Amphetamine Screen Negative U Benzodiazepines Scrn Negative [place] Cancelled 0.7 1.3 H* Urine Cocaine Screen Negative U Cannabinoids Screen Positive A Ethyl Alcohol < 10 Hep Bs Antigen 07/20/25 07/20/25 07/20/25 04:29 05:39 07:36 WBC 10.5 H RBC 4.63 Hgb 14.4 Hct 43.4 MCV 93.7 MCH 31.1 MCHC 33.2 RDW 14.0 Plt Count 312 MPV 9.2 Immature Gran % (Auto) 0.3 Neut % (Auto) 75.6 H Lymph % (Auto) 14.3 L [place] % (Auto) 8.3 Eos % (Auto) 1.2 Baso % (Auto) 0.3 Lymph # (Auto) 1.49 [place] # (Auto) 0.9 H Eos # (Auto) 0.1 Baso # (Auto) 0.0 Abs Immat Gran (auto) 0.03 Absolute Neuts (auto) 7.9 H Absolute Nucleated RBC 0.000 Nucleated RBC % 0.0 PT INR APTT Sodium 135 L Potassium 4.0 Chloride 107 Carbon Dioxide 25 Anion Gap 3 L BUN 6 L Creatinine 0.79 Estim Creat Clear Calc 180 Estimated GFR > 60 Glucose 75 Calcium 9.3 Total Bilirubin 0.6 AST 33 ALT 14 Alkaline Phosphatase 84 Total Protein 7.8 Albumin 4.5 TSH Urine Color Urine Appearance Urine pH Ur Specific [place] Urine Protein Urine Glucose (UA) Urine Ketones Ur Blood (Man) Urine Nitrate Urine Bilirubin Urine Urobilinogen Leukocyte Esterase Rfl Urine RBC Urine WBC Ur Squamous Epith Cells Urine Bacteria Urine Casts Ur Random Sodium Nasal MRSA (PCR) Not detected Salicylates Urine Opiates Screen Urine Methadone Screen Acetaminophen Ur Barbiturates Screen Ur Phencyclidine Scrn Ur Amphetamine Screen U Benzodiazepines Scrn [place] 1.1 Urine Cocaine Screen U Cannabinoids Screen Ethyl Alcohol Hep Bs Antigen Negative 07/20/25 09:11 WBC RBC Hgb Hct MCV MCH MCHC RDW Plt Count MPV Immature Gran % (Auto) Neut % (Auto) Lymph % (Auto) [place] % (Auto) Eos % (Auto) Baso % (Auto) Lymph # (Auto) [place] # (Auto) Eos # (Auto) Baso # (Auto) Abs Immat Gran (auto) Absolute Neuts (auto) Absolute Nucleated RBC Nucleated RBC % PT INR APTT Sodium Potassium Chloride Carbon Dioxide Anion Gap BUN Creatinine Estim Creat Clear Calc Estimated GFR Glucose Calcium Total Bilirubin AST ALT Alkaline Phosphatase Total Protein Albumin TSH Urine Color Urine Appearance Urine pH Ur Specific [place] Urine Protein Urine Glucose (UA) Urine Ketones Ur Blood (Man) Urine Nitrate Urine Bilirubin Urine Urobilinogen Leukocyte Esterase Rfl Urine RBC Urine WBC Ur Squamous Epith Cells Urine Bacteria Urine Casts Ur Random Sodium 121 Nasal MRSA (PCR) Salicylates Urine Opiates Screen Urine Methadone Screen Acetaminophen Ur Barbiturates Screen Ur Phencyclidine Scrn Ur Amphetamine Screen U Benzodiazepines Scrn [place] Urine Cocaine Screen U Cannabinoids Screen Ethyl Alcohol Hep Bs Antigen Quality VTE Prophylaxis VTE prophylaxis: mechanical ordered
[2025-07-20 12:09] LABS: Lithium 0.8 mmol/L (0.6-1.2)
[2025-07-20 16:50] LABS: Hepatitis B Surface Anti Res Indeterminate
[2025-07-20 16:51] LABS: HBSAB RETEST 1 9.60 S/C; HBSAB RETEST 2 9.50 S/C
--- OUTSIDE RECORDS SUMMARY | 2025-07-21 07:26 | XMS_ITS | Clinical Summary ---
Author Organization [facility] Address [address] [place] [id number] Care Team Providers Care Domestic Violence Advocate Name Role Phone None, Provider MD Primary Care Provider Unavaila ble Allergies No known active allergies Medications No known medications Social History Tobacco Use Types Packs/Day Years Used Date Smoking Tobacco: Some Days Cigarettes Smokeless Tobacco: Never Tobacco Cessation:Ready to Q uit: Not Asked; Counseling Given: Not Answered Alcohol Use Standard Drinks/Week Comments Yes 0 (1 standard drink = 0.6 oz pur e alcohol) Sex and Gender Information Value Date Recorded Sex Assigned at Not on file Legal Sex Male 10:53 AM CDT Gender Identity Not on file Sexual Orientation Not on file Last Filed Vital Signs Vital Sign Reading Time Taken Comments Blood Pressure 129/66 01/08/2025 2:00 PM CDT Pulse 70 01/08/2025 2:00 PM CDT Temperature 37.2 C (98.9 F) 01/08/2025 10:56 AM CDT Respiratory Rate 18 01/08/2025 10:5 6 AM CDT Oxygen Saturation 97% 01/08/2025 2:00 PM CDT Inhaled Oxygen Concentration - - Weight 120.1 kg (264 lb 12.4 oz) 2024 10:56 AM CDT Height 188 cm (6' 2) 01/08/2025 10:56 AM CDT Body Mass Index 33.99 01/08/2025 10:56 AM CDT Plan of Treatment Health Maintenance Due Date Last Done Comments Annual Physical 2007 Meningococcal B Vaccine (1 of 2 - Standard) 2020 Hepatitis C 2022 Pneumococcal Vaccine: Pediatrics (0 to 5 Years) and At-Risk Patients (6 to 49 Years) (1 of 2 - PCV) 2023 2004, 2004, 2004 COVID-19 Vaccine (2024- season) 2025 Influenza Adult (#1) 2025 10/01/2018, 09/15/2018, 07/03/2016, Additional history exists DTaP, Tdap and Td Vaccines (8 - Td or Tdap) 10/11/2034 10/11/2024, 04/30/2016, 03/31/2010, Additional history exists Hepatitis A Vaccines Completed 10/24/2007, 05/13/20 06 Meningococcal Vaccine Aged Out 06/02/2014 No jono hallie eligible based on patient's age to complete this topic HPV Vaccines Completed 09/15/2018, 06/19, 04/30/2016 Hepatitis B Vaccines Completed 09/15/2018, 07/03/2016, 04/30/2016 RSV Immunizations Under 20 Months Aged Out No longer eligible based on patient's age to complete this topic Insurance [address] [place] [id number] [facility] MEDICAID Care Teams Domestic Violence Advocate Relationship Specialty Start Date End Date None, Provider, MD PCP - General UNKNOWN PHYSICIAN SPECIALTY 01/08/25
--- OUTSIDE RECORDS SUMMARY | 2025-07-21 07:26 | XMS_ITS | Clinical Summary ---
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 Psychosis improved on Risperdal 4 mg BID, previously floridly psychotic, making delusional statements and aggressive, jumping into the nursing station requiring seclusion etc. Agitation showing significant improvement, did complain of dizziness, orthostatic vitals were positive. Due to significant response to risperdal 4 mg will not change to a different antipsychotic at this time, decreased to risperdal 2 BID and administered Invega sustenna 156 mg loading dose and treating with salt tablets daily. Very mild rigidity on exam. Still no continued evidence of AVH/delusions. Plan for additional invega sustenna dose prior to discharge, likely Saturday. - Risperdal 2 mg BID - Invega sustenna 156 mg loading 10/29, plan to administer additional 234 mg prior to discharge - NaCl 1g daily - dizziness/orthostatic hypotension improving - none noted since initiation of salt tablets and decrease of oral risperdal -Legal status: 21 Assessment & Plan (10/19/2022 1:05 PM ELECTRICAL INSTALLATION INSPECTOR): Patient continues to exhibit signs of psychosis such as AH/VH, disorganized thoughts and behaviors, delusion of grandeur and hyper-anabaptist. However, he interacts with staff and this resident more appropriately today. His speech makes a little more sense, and he was able to ask for this resident and the attending's name today. CTM. - RIsperdal 2 mg BID. -Legal status: I96. 21 filed. Assessment & Plan (10/18/2022 3:50 PM ELECTRICAL INSTALLATION INSPECTOR): Patient continues to exhibit signs of psychosis such as AH/VH, disorganized thoughts and behaviors, delusion of grandeur and hyper-anabaptist - RIsperdal 1 mg BID. -Legal status: I96 Assessment & Plan (10/17/2022 8:36 AM ELECTRICAL INSTALLATION INSPECTOR): Patient continues to exhibit signs of psychosis such as AH/VH, disorganized thoughts and behaviors, delusion of grandeur and hyper-reli -Continues to hold off antipsychotic for further observation. Continues to observe. -I96 Resolved Problems Problem Noted Date Diagnosed Date Resolved Date Bizarre behavior 10/16/2022 10/16/2022 Immunizations Immunization Administration Dates Next Due Tdap 10/11/2024 Surgical History Surgery Date Site/Laterality Comments NO PAST SURGERIES Medical History Medical History Date Comments Known health problems: none Family History Medical History Relation Name Comments Hypertension Father Relation Name Status Comments Father Social History Tobacco Use Types Packs/Day Years Used Date Smoking Tobacco: Some Days Cigarettes Passive Smoke Exposure: Never Tobacco Cessation:Ready to Q uit: Not Asked; Counseling Given: No Humiliation, Afraid, Rape, and Kick questionnair e Answer Date Recorded Within the last year, have y ou been afraid of your partner or ex-partner? Patient declined 10/17/2022 Within the last year, have y ou been humiliated or emotionally abused in other ways by your partner or ex-partner? Patient declined 10/17/2022 Within the last year, have y ou been kicked, hit, slapped, or otherwise physically hurt by your partner or ex-partner? Patient declined 10/17/2022 Within the last year, have y ou been raped or forced to have any kind of sexual activity by your partner or ex-partner? Patient declined 10/17/2022 Social Connection and Isolation Panel Answer Date Recorded In a typical week, how many times do you talk on the phone with family, friends, or neighbors? Patient declined 10/17/2022 How often do you get togethe r with friends or relatives? Patient declined 10/17/2022 How often do you attend confucianist or anabaptist serv ices? Patient declined 10/17/2022 Do you belong to any clubs o r organizations such as confucianist groups, unions, fraternal or athletic groups, or school groups? Patient declined 10/17/2022 How often do you attend meet ings of the clubs or organizations you belong to? Patient declined 10/17/2022 Are you , , di vorced, , never , or living with a partner? Never 10/17/2022 AUDIT-C Answer Date Recorded Q1: How often do you have a drink containing alc ohol? Patient declined 10/17/2022 Q2: How many drinks containi ng alcohol do you have on a typical day when you are drinking? Patient declined 10/17/2022 Q3: How often do you have si x or more drinks on one occasion? Patient declined 10/17/2022 Overall Financial Resource Strain (CARDIA) Answe r Date Recorded How hard is it for you to pa y for the very basics like food, housing, medical care, and heating? Patient declined 10/17/2022 PHQ-2 Answer Date Recorded PHQ-2 Total Score (If total score is 3 or more points, staff should administer the PHQ-9) 0 10/16/2022 [facility] - Occupational Stress Questionnaire Answer Date Recorded Do you feel stress - tense, restless, nervous, or anxious, or unable to sleep at night because your mind is troubled all the time - these days? Patient declined 10/17/2022 Exercise Vital Sign Answer Date Recorde d On average, how many days pe r week do you engage in moderate to strenuous exercise (like a brisk walk)? Patient declined On average, how many minutes do you engage in exercise at this level? Patient declined 10/17/2022 Hunger Vital Sign Answer Date Recorded Within the past 12 months, y ou worried that your food would run out before you got the money to buy more. Patient declined Within the past 12 months, t he food you bought just didn't last and you didn't have money to get more. Patient declined 08/2022 PRAPARE - Transportation Answer Date Re corded In the past 12 months, has l ack of transportation kept you from medical appointments or from getting medications? Patient declined 10/17/2022 In the past 12 months, has l ack of transportation kept you from meetings, work, or from getting things needed for daily living? Patient declined 10/17/2022 Housing Stability Vital Sign Answer Jose Enrique e Recorded In the last 12 months, was t here a time when you were not able to pay the mortgage or rent on time? Patient refused 10/18/19 23 Number of Places Lived in the Last Year Not on f ile 10/17/2022 In the last 12 months, was t here a time when you did not have a steady place to sleep or slept in a correction (including now)? Patient refused 10/17/2022 Personal Safety Answer Date Recorded Have you ever been in or are you currently in a harmful physical or emotional relationship or is someone making you feel afraid or unsafe? Denies 02/23/2025 Sex and Gender Information Value Date Recorded Sex Assigned at Not on file Legal Sex Male 8:39 PM ELECTRICAL INSTALLATION INSPECTOR Gender Identity Not on file Sexual Orientation Not on file Last Filed Vital Signs Vital Sign Reading Time Taken Comments Blood Pressure 139/68 02/24/2025 3:34 AM CDT Pulse 54 02/24/2025 3:34 AM CDT Temperature 36.6 C (97.9 F) 02/24/2025 3:34 AM CDT Respiratory Rate 18 02/24/2025 3:34 AM CDT Oxygen Saturation 98% 02/24/2025 3:34 AM CDT Inhaled Oxygen Concentration - - Weight 137.9 kg (304 lb) 02/23/2025 3:29 PM CDT Height 188 cm (6' 2) 02/23/2025 3:29 PM CDT Body Mass Index 39.03 02/23/2025 3:29 PM CDT Plan of Treatment Health Maintenance Due Date Last Done Comments Hepatitis C Screening 2004 Meningococcal B Vaccine (1 of 2 - Standard) 2020 Regular Well Visit/Exam 18-64 2022 Pneumococcal vaccine <65 (1 of 2 - PCV) 2023 2004, 2004, 2004 Depression Screening 10/16/2023 10/16/2022, 10/16/19 23 Influenza Vaccine (#1) 2025 9, 09/15/2018, 07/03/2016, Additional history exists DTaP/Tdap/Td Vaccine (8 - Td or Tdap) 10/11/2034 10/11/2024, 04/30/2016, 03/31/2010, Additional history exists Varicella Vaccines Completed 03/31/2012, 07/31/2005 Meningococcal Vaccine Aged Out 06/02/2014 No jono hallie eligible based on patient's age to complete this topic HPV Vaccines Completed 09/15/2018, 06/19, 04/30/2016 Hepatitis B Screening Completed 09/15/2018 , 07/03/2016, 04/30/2016 Insurance [facility] Advance Directives For more information, please contact: [phone] * Full Code (Latest Code Status on File) Date Activated Date Inactivated Comments 10/16/2022 7:37 PM 11/02/2022 11:31 PM Care Teams Desktop Architect Relationship Specialty Start Date End Date No, Physician PCP - General 03/19/22
[2025-07-22 01:07] LABS: Osmolality, Serum 277 mOsmol/kg (275-295)
[2025-07-22 13:08] LABS: Osmolality, Urine 316 mOsmol/kg (.)
== END 2025-07-20 11:48 | disposition left against medical advice (07) ==
LOC: ANHED 07-20 02:04 → ANHICU 07-20 06:34
PROVIDERS: Internal Medicine Nephrology; Nurse Practitioner; Student in an Organized Health Care Education/Training Program; Admitting Provider Student in an Organized Health Care Education/Training Program; Emergency Provider Student in an Organized Health Care Education/Training Program; Visit Provider Student in an Organized Health Care Education/Training Program
DX: T56.892A Toxic effect of other metals, intentional self-harm, initial encounter (principal); E87.1 Hypo-osmolality and hyponatremia; F20.9 Schizophrenia, unspecified; F31.9 Bipolar disorder, unspecified; F90.9 Attention-deficit hyperactivity disorder, unspecified type; F17.210 Nicotine dependence, cigarettes, uncomplicated; F12.90 Cannabis use, unspecified, uncomplicated; Z53.29 Procedure and treatment not carried out because of patient's decision for other reasons; Z82.49 Family history of ischemic heart disease and other diseases of the circulatory system
CPT/HCPCS: 36415; 80053; 80143; 80178; 80179; 80307; 81001; 82077; 83930; 83935; 84300; 84443; 85025; 85610; 85730; 86706; 87340; 87641; 93005; 96360; 96361; 99285; G0378; J7030